=== PATIENT | male | born 1960 | race Caucasian/White ===

== ENCOUNTER 2017-12-21 15:12 | Emergency (ER) | payer OTHER ==
[~2017-12-21] VITALS: Ht 177.8 cm; Wt 86.2 kg
[2017-12-21] MEDS ORDERED: LIDOCAINE HCL 1% 2 ML AMP INJ ONE (16:00)
[2017-12-21] MEDS ORDERED: HYDROCODONE/APAP 10MG-325MG TAB PO ONE (16:00)
[2017-12-21] MEDS ORDERED: LIDOCAINE HCL 2% LOCAL 20 ML VIAL INJ ONE (16:00)
[2017-12-21] MEDS ORDERED: TETANUS/DIPHTHERIA TOX ADULT 0.5 ML SYR IM ONE (16:00)
[2017-12-21] MEDS ORDERED: HYDROCODONE/APAP 5MG-325MG TAB PO ONE (16:15)
[2017-12-21] MEDS ORDERED: LIDOCAINE HCL 1% LOCAL INJ 20 ML VIAL ONE (16:16)
[2017-12-21] MEDS ORDERED: DIPHTH/TETANUS/ACEL. PERTUSSIS 0.5 ML SYR IM ONE (16:30)
[2017-12-21] MEDS ORDERED: BACITRACIN ZINC 0.9GM TP ONE (16:45)
--- NOTE | 2017-12-21 16:45 | Diagnostic Imaging Report ---
PROCEDURE:X-RAY LEFT HAND, THREE OR MORE VIEWS COMPARISON:None. INDICATIONS:LACERATION ON RIGHT HAND IN BETWEEN THUMB AND INDEX FINGER FINDINGS: Normal mineralization. Linear lucency traversing the tuft of the second finger distal phalanx. Deformity of the distal aspect of the fourth finger distal phalanx. Degenerative changes in the second finger distal interphalangeal joint, with osteophyte formation and joint space narrowing. Other bony structures are intact. No lytic or blastic lesions. No definite soft tissue defects. CONCLUSION: 1. No soft tissue defects are identified. 2. Linear lucency traversing the tuft of the second finger distal phalanx may represent an acute, nondisplaced fracture in the setting of trauma. 3. Deformity of the distal aspect of the fourth finger distal phalanx may represent result of prior trauma. 4. Degenerative changes in the second finger distal interphalangeal joint. Александр Landers M.D. Dictated by: Александр Landers M.D. on 12/21/2017 at 16:54 Electronically approved by: Александр Landers M.D. on 12/21/2017 at 16:54
== END 2017-12-21 17:07 | disposition home or self-care (01) ==
LOC: ER 15:12
DX: S61.412A Laceration without foreign body of left hand, initial encounter (principal); W26.0XXA Contact with knife, initial encounter; Y92.008 Other place in unspecified non-institutional (private) residence as the place of occurrence of the external cause
CPT/HCPCS: 12002; 73130; 90471; 90714; 99284; J2001